=== PATIENT | male | born 1955 | race Caucasian/White ===

== ENCOUNTER → 2018-01-14 08:58 | Outpatient (CLI) | payer OTHER, SELFPAY ==
[2018-01-14 10:11] LABS: Add Manual Diff / Slide Review NO; Basophils Percent Auto 0.9 % (0-2); Eosinophils Percent Auto 1.2 % (2-4); Hematocrit 45.5 % (41-53); Hemoglobin 15.5 g/dL (13.5-17.5); Lymphocytes Percent Auto 30.3 % (25-40); Mean Corpuscular HGB Conc 34.2 % (30-36); Mean Corpuscular Hemoglobin 30.3 PG (26-34); Mean Corpuscular Volume 88.7 fL (80-100); Monocytes Percent Auto 8.1 % (3-14); Neutrophils Absolute Auto 2800 /uL (3000-5900); Neutrophils Percent Auto 59.5 % (50-75); Platelet Count 241 X10^3/uL (150-400); Red Blood Cell Count 5.13 X10^6/uL (4.5-5.9); Red Cell Distribution Width 12.9 % (11.6-14.8); White Blood Cell Count 4.7 X10^3/uL (4.5-11.0)
[2018-01-14 10:37] LABS: Alanine Aminotransferase 25 IU/L (21-72); Albumin 4.2 g/dL (3.5-5.0); Albumin Globulin Ratio 1.5 (1.0-2.8); Alkaline Phosphatase 58 U/L (38-126); Aspartate Aminotransferase 17 IU/L (17-59); BUN Creatinine Ratio 22.2 (6-22); Blood Urea Nitrogen 20 mg/dL (9-20); Calcium 8.8 mg/dL (8.4-10.2); Carbon Dioxide 32 mmol/L (22-32); Chloride 104 mmol/L (98-107); Cholesterol 169 mg/dL (140-199); Estimated Glomerular Filt Rate > 60.0 mL/min (>60); Globulin 2.8 g/dL (1.7-4.1); Glucose 107 mg/dL (80-110); HDL Cholesterol 63 mg/dL (40-60); HEMOLYSIS < 15 (0-50); LDL Cholesterol Calculated 87 mg/dL (<100); Potassium 4.3 mmol/L (3.4-5.1); Sodium 144 mmol/L (137-145); Triglycerides 93 mg/dL (35-150)
[2018-01-14 11:05] LABS: Prostate Specific Antigen Scrn 0.403 ng/mL (0.1-4.0)
== END ==
PROVIDERS: Student in an Organized Health Care Education/Training Program; PCP Family Medicine; Visit Provider Family Medicine
DX: E78.00 Pure hypercholesterolemia, unspecified (principal); Z00.00 Encounter for general adult medical examination without abnormal findings; Z12.5 Encounter for screening for malignant neoplasm of prostate
CPT/HCPCS: 36415; 80053; 80061; 85025; G0103

== ENCOUNTER → 2018-10-29 10:31 | Outpatient (CLI) | payer OTHER, SELFPAY ==
[2018-10-29 12:25] LABS: Cholesterol 177 mg/dL (140-199); HDL Cholesterol 48 mg/dL (40-60); LDL Cholesterol Calculated 103 mg/dL (<100); Triglycerides 129 mg/dL (35-150)
== END ==
PROVIDERS: PCP Family Medicine; Visit Provider Internal Medicine
DX: E78.2 Mixed hyperlipidemia (principal)
CPT/HCPCS: 36415; 80061

== ENCOUNTER 2019-04-13 08:25 | Day surgery (SDC) | payer OTHER, SELFPAY ==
[2019-04-13 08:47] VITALS: BP 123/82; PULSE 71; RESP 15; TEMP 36; O2SAT 97; BMI 26.6
[2019-04-13] MEDS: SODIUM CHLORIDE 0.9% 1,000 ML 200 ML IV (08:55)
--- NOTE | 2019-04-13 09:02 | PM.HP.1 ---
History of Present Illness History of Present Illness Date Patient Seen: 04/13/19 Time Patient Seen: 09:52 Chief complaint: [id number] Narrative: Patient presents for colorectal screening. They they had a prior colonoscopy 5 years ago that was normal.. No personal history of colon cancer, his father developed colon cancer at age 60. On further history denies any recent gastrointestinal symptoms. No nausea, vomiting, abdominal pain, loss of appetite, unexplained weight loss, change in bowel habits, diarrhea, constipation, melena, hematochezia, or bright red blood per rectum. Patient History Surgical History History of vasectomy Status post colonoscopy Family & Social History Family History Brother Age: 77 COPD (chronic obstructive pulmonary disease) Stroke DVT (deep venous thrombosis) Brother Age: 61 Bile duct cancer Heart disease High cholesterol Grandmother Diabetes mellitus Mother Mental health problem Grandfather Heart disease Sister Age: 59 Bile duct cancer Social History: household members spouse Tobacco & Substance use: Smoking Status Never smoker Meds Home Medications and Allergies Home Medications Medication Instructions Recorded Confirmed Type aspirin 1 tab PO QDAY #0 03/01/17 04/13/19 History epinephrine #0 03/01/17 08/27/17 History pravastatin 40 mg tablet 40 mg PO HS #90 tab 08/27/17 04/13/19 Rx sildenafil (pulm.hypertension) 20 See Rx Instructions PO .COMPLEX 08/27/17 04/13/19 Rx mg tablet #30 tab Allergies Allergy/AdvReac Type Severity Reaction Status Date / Time yellow jackets Allergy Severe Swelling, Uncoded 04/13/19 08:45 difficulty breathing. Review of Systems Review of Systems Narrative: A complete review of systems is negative except as noted in the HPI Exam Vital Signs (past 8 hours): - 04/13/19 08:47 Temperature 96.8 F L Pulse Rate 71 Respiratory Rate 15 Blood Pressure 123/82 Pulse Oximetry 97 Oxygen Delivery Method Room Air Narrative Exam Narrative: General-no acute distress, well nourished HEENT-moist mucous membranes, no scleral icterus Neck-supple, no lymphadenopathy Chest- non labored respirations, clear to auscultation bilaterally Cardiac-regular rate no peripheral edema Abdomen-soft, nontender, non distended Extremities-warm, well perfused Neurological-alert and oriented, no focal deficits Assessment & Plan Assessment and plan (1) Screening for colon cancer: Current visit: Yes Status: Acute Assessment & Plan narrative: The patient requires colorectal screening and colonoscopy is recommended. Technical details were discussed. Risks, benefits, alternatives explained. Risks including but not limited to myocardial infarction, aspiration, bleeding, pain, missed lesion, incomplete examination, need for further radiographic studies, colonic perforation, and need for major abdominal surgery were discussed. All questions were answered to their satisfaction, and they are in agreement with this plan.
[2019-04-13] MEDS: MIDAZOLAM 5 MG/5 ML VIAL IV (09:55)
[2019-04-13] MEDS: fentaNYL 250 MCG/5 ML INJ IV (09:55)
--- NOTE | 2019-04-13 10:17 | PM.OP.ENDO ---
Operative Date/Time/Diagnoses Date of procedure: 04/13/19 Time of procedure: 10:17 Pre-op diagnosis: Screening colonoscopy Post-op diagnosis: same Procedure & Clinicians Study performed: Colonoscopy Same procedure as scheduled: Yes Indications: 63-year-old male with a first-degree relative with colon cancer presents for screening. Last colonoscopy 5 years ago was normal. Surgeon: Issa Rivera Procedure Notes SCOAP/Timeout: Performed Procedure in detail: Patient placed in left lateral decubitus position. Time out was performed. Procedural sedation was administered with Versed and Fentanyl. A rectal exam demonstrated no external hemorrhoids no internal masses. Colonoscopy scope was placed into the rectum and advanced through the colon to the cecum. The ileocecal valve was identified. The scope was then slowly withdrawn examining colon thoroughly in all directions. The colonoscopy was notable for the following 1. Sigmoid diverticulosis 2. Quality of prep moderate Scope withdrawal time: 6 Sedation minutes: 18 Findings: diverticulosis Specimen(s): none sent Complications: none Impression: Diverticulosis Post-procedure Recommendations: Colonscopy in 5 years Disposition: same day surgery
[2019-04-13 10:20] VITALS: BP 111/77; PULSE 67; RESP 14; TEMP 36.8; O2SAT 98
[2019-04-13 10:25] VITALS: BP 108/77; PULSE 73; RESP 17; O2SAT 98
[2019-04-13 10:30] VITALS: BP 111/75; PULSE 69; RESP 18; O2SAT 97
[2019-04-13 10:33] VITALS: BP 110/77; PULSE 70; RESP 17; TEMP 36.5; O2SAT 97
== END 2019-04-13 10:49 | disposition home or self-care (01) ==
PROVIDERS: PCP Internal Medicine; Visit Provider Surgery
PROC: 0DJD8ZZ Inspection of Lower Intestinal Tract, Via Natural or Artificial Opening Endoscopic (ICD-10-PCS; CPT 45378; principal; 2019-04-13 10:00)
DX: Z12.11 Encounter for screening for malignant neoplasm of colon (principal); K57.30 Diverticulosis of large intestine without perforation or abscess without bleeding; Z80.0 Family history of malignant neoplasm of digestive organs
CPT/HCPCS: 45378; 99152; J2250; J3010

== ENCOUNTER → 2019-08-13 09:02 | Outpatient (CLI) | payer OTHER, SELFPAY ==
[2019-08-13 10:05] LABS: Add Manual Diff / Slide Review NO; Basophils Absolute Auto 0 /uL (0-100); Eosinophils Absolute Auto 0 /uL (0-450); Eosinophils Percent Auto 1.1 % (2-4); Hemoglobin 16.1 g/dL (13.5-17.5); Lymphocytes Absolute Auto 1200 /uL (1100-4500); Lymphocytes Percent Auto 28.7 % (25-40); Mean Corpuscular HGB Conc 34.3 % (30-36); Mean Corpuscular Hemoglobin 30.6 PG (26-34); Mean Corpuscular Volume 89.3 fL (80-100); Monocytes Absolute Auto 300 /uL (0-900); Monocytes Percent Auto 7.4 % (3-14); Neutrophils Absolute Auto 2700 /uL (1500-7000); Neutrophils Percent Auto 61.8 % (50-75); Platelet Count 253 X10^3/uL (150-400); Red Blood Cell Count 5.27 X10^6/uL (4.5-5.9); Red Cell Distribution Width 12.8 % (11.6-14.8); White Blood Cell Count 4.3 X10^3/uL (4.5-11.0)
[2019-08-13 11:28] LABS: Alanine Aminotransferase 21 IU/L (<50); Albumin 4.3 g/dL (3.5-5.0); Albumin Globulin Ratio 1.4 (1.0-2.8); Alkaline Phosphatase 70 U/L (38-126); Aspartate Aminotransferase 27 IU/L (17-59); BUN Creatinine Ratio 21.3 (6-22); Bilirubin Total 1.1 mg/dL (0.2-1.3); Blood Urea Nitrogen 19 mg/dL (9-20); Calcium 9.1 mg/dL (8.4-10.2); Carbon Dioxide 29 mmol/L (22-32); Chloride 105 mmol/L (98-107); Cholesterol 183 mg/dL (140-199); Estimated Glomerular Filt Rate > 60.0 mL/min (>60); Glucose 137 mg/dL (80-110); HDL Cholesterol 50 mg/dL (40-60); HEMOLYSIS < 15 (0-50); LDL Cholesterol Calculated 109 mg/dL (<100); Potassium 4.4 mmol/L (3.4-5.1); Sodium 141 mmol/L (137-145); Total Protein 7.3 g/dL (6.3-8.2); Triglycerides 120 mg/dL (35-150)
== END ==
PROVIDERS: PCP Internal Medicine; Referring Provider Internal Medicine; Visit Provider Internal Medicine
DX: Z12.5 Encounter for screening for malignant neoplasm of prostate (principal); E78.2 Mixed hyperlipidemia; N52.8 Other male erectile dysfunction
CPT/HCPCS: 36415; 80053; 80061; 85025; G0103

== ENCOUNTER → 2021-09-29 10:02 | Outpatient (CLI) | payer MEDICARE, BC, SELFPAY ==
[2021-09-29 11:09] LABS: Hematocrit 48.1 % (41-53); Hemoglobin 16.2 g/dL (13.5-17.5); Mean Corpuscular HGB Conc 33.8 % (30-36); Mean Corpuscular Hemoglobin 29.6 PG (26-34); Mean Corpuscular Volume 87.7 fL (80-100); Platelet Count 250 X10^3/uL (150-400); Red Blood Cell Count 5.48 X10^6/uL (4.5-5.9); White Blood Cell Count 5.2 X10^3/uL (4.5-11.0)
[2021-09-29 11:20] LABS: Hemoglobin A1C% w Est Avg Glu 6.1 % (4.0-6.0)
[2021-09-29 11:34] LABS: Alanine Aminotransferase 17 IU/L (<50); Albumin 4.3 g/dL (3.5-5.0); Albumin Globulin Ratio 1.5 (1.0-2.8); Alkaline Phosphatase 66 U/L (38-126); Aspartate Aminotransferase 20 IU/L (17-59); BUN Creatinine Ratio 17.3 (6-22); Bilirubin Total 0.9 mg/dL (0.2-1.3); Blood Urea Nitrogen 18 mg/dL (9-20); Calcium 8.8 mg/dL (8.4-10.2); Carbon Dioxide 32 mmol/L (22-32); Chloride 103 mmol/L (98-107); Cholesterol 160 mg/dL (140-199); Estimated Glomerular Filt Rate > 60 mL/min (>60); Globulin 2.8 g/dL (1.7-4.1); Glucose 113 mg/dL (80-110); HDL Cholesterol 58 mg/dL (40-60); HEMOLYSIS < 15 (0-50); LDL Cholesterol Calculated 82 mg/dL (<100); Potassium 5.2 mmol/L (3.4-5.1); Sodium 138 mmol/L (137-145); Total Protein 7.1 g/dL (6.3-8.2); Triglycerides 99 mg/dL (35-150)
[2021-09-29 12:02] LABS: Prostate Specific Antigen 0.476 ng/mL (0.10-4.00)
[2021-09-29 12:04] LABS: TSH w/ Reflex to FT4 1.85 uIU/mL (0.47-4.68)
== END ==
PROVIDERS: PCP Internal Medicine; Referring Provider Internal Medicine; Visit Provider Internal Medicine
DX: E78.2 Mixed hyperlipidemia (principal); R73.01 Impaired fasting glucose; N40.0 Benign prostatic hyperplasia without lower urinary tract symptoms; N52.9 Male erectile dysfunction, unspecified
CPT/HCPCS: 36415; 80053; 80061; 83036; 84153; 84443; 85027

== ENCOUNTER → 2022-10-02 09:04 | Outpatient (CLI) | payer MEDICARE, OTHER, SELFPAY ==
[2022-10-02 10:54] LABS: BUN Creatinine Ratio 21.9 (6-22); Blood Urea Nitrogen 21 mg/dL (9-20); Calcium 9.1 mg/dL (8.4-10.2); Carbon Dioxide 30 mmol/L (22-32); Chloride 106 mmol/L (98-107); Cholesterol 165 mg/dL (140-199); Estimated Glomerular Filt Rate > 60 mL/min (>60); Glucose 123 mg/dL (80-110); HDL Cholesterol 62 mg/dL (40-60); HEMOLYSIS < 15 (0-50); LDL Cholesterol Calculated 83 mg/dL (<100); Potassium 4.9 mmol/L (3.4-5.1); Sodium 142 mmol/L (137-145); Triglycerides 100 mg/dL (35-150)
[2022-10-02 11:18] LABS: Prostate Specific Antigen 0.611 ng/mL (0.10-4.00)
[2022-10-03 03:15] LABS: x Labcorp Estim. Avg Glu (eAG) 131 mg/dL (.); x Labcorp Hemoglobin A1c 6.2 % (4.8-5.6)
== END ==
PROVIDERS: PCP Internal Medicine; Referring Provider Internal Medicine; Visit Provider Internal Medicine
DX: E78.2 Mixed hyperlipidemia; N40.0 Benign prostatic hyperplasia without lower urinary tract symptoms; N52.9 Male erectile dysfunction, unspecified; R73.01 Impaired fasting glucose; Z80.0 Family history of malignant neoplasm of digestive organs
CPT/HCPCS: 36415; 80048; 80061; 83036; 84153

== ENCOUNTER → 2023-10-08 08:32 | Outpatient (CLI) | payer MEDICARE, OTHER, SELFPAY ==
[2023-10-08 09:13] LABS: Hemoglobin A1C% w Est Avg Glu 6.1 % (4.0-6.0)
[2023-10-08 09:21] LABS: Aspartate Aminotransferase 26 IU/L (17-59); BUN Creatinine Ratio 13.3 (6-22); Blood Urea Nitrogen 12 mg/dL (9-20); Calcium 8.5 mg/dL (8.4-10.2); Carbon Dioxide 30 mmol/L (22-32); Chloride 107 mmol/L (98-107); Cholesterol 179 mg/dL (140-199); Estimated Glomerular Filt Rate > 60 mL/min (>60); Glucose 126 mg/dL (80-110); HDL Cholesterol 66 mg/dL (40-60); HEMOLYSIS < 15 (0-50); LDL Cholesterol Calculated 93 mg/dL (<100); Potassium 4.7 mmol/L (3.4-5.1); Sodium 139 mmol/L (137-145); Triglycerides 102 mg/dL (35-150)
[2023-10-08 09:49] LABS: Prostate Specific Antigen 0.491 ng/mL (0.10-4.00)
== END ==
LOC: LAB 08:33
PROVIDERS: PCP Internal Medicine; Referring Provider Internal Medicine; Visit Provider Internal Medicine
DX: R73.01 Impaired fasting glucose (principal); E78.2 Mixed hyperlipidemia; N40.1 Benign prostatic hyperplasia with lower urinary tract symptoms
CPT/HCPCS: 36415; 80048; 80061; 83036; 84153; 84450

== ENCOUNTER 2024-05-26 10:34 | Day surgery (SDC) | payer MEDICARE, OTHER, SELFPAY ==
[2024-05-26 11:49] VITALS: BP 126/71; PULSE 65; RESP 16; TEMP 36.2; O2SAT 99
--- NOTE | 2024-05-26 13:45 | PM.OP.COLON ---
Operative Date/Time/Diagnoses Date of procedure: 05/26/24 Time of procedure: 13:45 Pre-op diagnosis: Family history of colon cancer, colon screening Post-op diagnosis: same Procedure & Clinicians Study performed: Colonoscopy Same procedure as scheduled: Yes Indications: Family history of colon cancer Surgeon: Richar Garcia Procedure Notes SCOAP/Timeout: Performed Procedure in detail: Time-out was performed. Mac was induced. Patient was placed in left lateral decubitus position. The perineum was inspected without any gross abnormality. Lubricated pediatric colonoscope was inserted and advanced to the cecum. The terminal ileum was intubated. The colonoscope was withdrawn slowly inspecting the circumference of the colon. Very small polyps may have been missed, prep quality was adequate. Retroflexed view of the rectum showed small, non prolapsed nonbleeding internal hemorrhoids. The scope was withdrawn the patient was taken to PACU in good condition. Scope withdrawal time: 6 Sedation minutes: 18 Findings: divertiulosis and internal hemorrhoids Post-procedure Recommendations: Colonoscopy in 10 years Follow up: as needed Disposition: PACU
[2024-05-26 13:47] VITALS: BP 103/66; PULSE 67; RESP 13; TEMP 36.6; O2SAT 98
[2024-05-26 13:52] VITALS: BP 110/68; PULSE 61; RESP 15; TEMP 36.4; O2SAT 99
[2024-05-26 14:02] VITALS: BP 117/75; PULSE 61; RESP 15; TEMP 36.4; O2SAT 99
--- NOTE | 2024-05-28 11:52 | PM.HP.IH.1 ---
History of Present Illness History of Present Illness Date Patient Seen: 05/26/24 Time Patient Seen: 13:00 Chief complaint: SDC Narrative: 68-year-old white male Patient presents a family history of colon cancer for colon screening [facility], [facility] Medical History Overweight Impaired fasting glucose Bee sting-induced anaphylaxis Mixed hyperlipidemia Family history of colon cancer Chicken pox (~1960) Kidney stones (~1979) Skin cancer (~2013) Surgical History Anesthesia History of tooth extraction (~1999) Status post colonoscopy History of vasectomy (~1989) Family History Brother COPD (chronic obstructive pulmonary disease) Stroke DVT (deep venous thrombosis) Brother Age: 66 Heart disease High cholesterol Grandmother Diabetes mellitus Mother Mental health problem Grandfather Heart disease Sister Cancer Father Cancer Grandfather Renal failure Grandmother Heart disease Dementia Social History details: , 2 children, 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 members: spouse Smoking Status: Never smoker alcohol intake: current Meds Home Medications and Allergies Home Medications Medication Instructions Recorded Confirmed Type fluticasone propionate 50 1 spray intranasal DAILY PRN 10/01/22 05/26/24 History mcg/actuation nasal allergy symptoms spray,suspension (Flonase Allergy Relief) bisacodyl 5 mg tablet (Laxative 5 mg PO DAILY #30 tabs 10/02/22 05/26/24 Rx (bisacodyl)) atorvastatin 20 mg tablet 20 mg PO DAILY #90 tabs 10/08/23 05/26/24 Rx epinephrine 0.3 mg/0.3 mL 0.3 mg (0.3 mL) IM DAILY PRN 10/08/23 10/08/23 Rx injection, auto-injector anaphylaxis #2 ea sildenafil (pulm.hypertension) 20 20 mg PO DAILY PRN sexual activity 10/08/23 10/08/23 Rx mg tablet #90 tabs sodium,potassium,mag sulfates 17.5 See Rx Instructions PO .COMPLEX 04/20/24 Rx gram-3.13 gram-1.6 gram oral soln #354 mL (Suprep Bowel Prep Kit) Allergies Allergy/AdvReac Type Severity Reaction Status Date / Time yellow jackets Allergy Severe Swelling, Uncoded 05/26/24 11:40 difficulty breathing. tree pollen Allergy Mild throat Uncoded 05/26/24 11:40 irriation Review of Systems Review of Systems ROS: Yes All systems reviewed with the patient and are negative except as otherwise documented Exam Vital Signs (past 8 hours): Oxygen Delivery Method Room Air Narrative Exam Narrative: Gen: NAD, sitting comfortably in bed, appears well HEENT: Sclera are anicteric, head is normocephalic and atraumatic, trachea is midline. CV: RRR, no JVD Resp: clear to auscultation bilaterally, equal chest wall movement bilaterally Abd: soft, nontender, normoactive bowel sounds Ext: no edema, full range of motion Neuro: Cranial nerves II-XII grossly intact, no focal deficits Skin: No erythema or ecchymosis Assessment & Plan Assessment and plan (1) Family history of colon cancer: Status: Acute Assessment & Plan narrative: Patient presents for colonoscopy Risks, benefits, alternatives to colonoscopy explained, including but not limited to bowel perforation or other serious complication requiring surgery at less than 1 in 5000 colonoscopies, abdominal pain, cramping or bleeding and less than 1% of colonoscopies, and the chances that we find a diagnosis that would require further intervention of about 2%. Patient agrees to proceed. Time-Based Coding :: [TOTAL MINUTES] spent with patient and on the chart (including review of chart, obtaining history, exam, reviewing outside data, placing orders, documenting exam and treatment plan, and counseling patient) on [DATE]. [employer] Document charge(s): No
== END 2024-05-26 14:16 | disposition home or self-care (01) ==
PROVIDERS: Surgery; PCP Internal Medicine; Referring Provider Surgery; Visit Provider Surgery
PROC: 0DJD8ZZ Inspection of Lower Intestinal Tract, Via Natural or Artificial Opening Endoscopic (ICD-10-PCS; CPT 45378; principal; 2024-05-26 11:45)
DX: Z12.11 Encounter for screening for malignant neoplasm of colon (principal); Z80.0 Family history of malignant neoplasm of digestive organs; K57.30 Diverticulosis of large intestine without perforation or abscess without bleeding; K64.8 Other hemorrhoids
CPT/HCPCS: G0105; J2704

== ENCOUNTER → 2024-10-29 09:37 | Outpatient (CLI) | payer MEDICARE, OTHER, SELFPAY ==
[2024-10-29 10:26] LABS: Hemoglobin A1C% w Est Avg Glu 5.9 % (4.0-6.0)
[2024-10-29 10:37] LABS: Blood Urea Nitrogen 17 mg/dL (9-20); Calcium 9.4 mg/dL (8.4-10.2); Carbon Dioxide 30 mmol/L (22-32); Chloride 104 mmol/L (98-107); Cholesterol 168 mg/dL (140-199); Estimated Glomerular Filt Rate > 60 mL/min (>60); Glucose 129 mg/dL (70-99); HDL Cholesterol 54 mg/dL (40-60); HEMOLYSIS < 15 (0-50); Sodium 139 mmol/L (137-145); Triglycerides 116 mg/dL (35-150)
[2024-10-29 10:51] LABS: Potassium 5.6 mmol/L (3.4-5.1)
[2024-10-29 11:07] LABS: Prostate Specific Antigen 0.674 ng/mL (0.10-4.00)
== END ==
PROVIDERS: PCP Internal Medicine; Referring Provider Internal Medicine; Visit Provider Internal Medicine
DX: R73.01 Impaired fasting glucose (principal); E78.2 Mixed hyperlipidemia; N40.1 Benign prostatic hyperplasia with lower urinary tract symptoms; N13.8 Other obstructive and reflux uropathy
CPT/HCPCS: 36415; 80048; 80061; 83036; 84153; 84450